=== PATIENT | male | born 1980 | race Caucasian/White ===

== ENCOUNTER 2017-12-05 20:17 | Emergency (ER) | payer SELFPAY ==
--- NOTE | 2017-12-05 22:23 | ER ---
Nurse's Notes [facility] Name: Dustin Dubois Age: 37 yrs Sex: Male : 1980 Arrival Date: 12/05/2017 Time: 20:17 Bed 28 Private MD: Diagnosis: Vomiting without nausea;Diarrhea, unspecified Presentation: 12/05 20:52 Presenting complaint: Patient states: Reports nausea. DX with food poisoning on Sunday. aj Vomiting stopped this AM. Patient is able to tolerate food and liquids. Transition of care: patient was not received from another setting of care. Onset of symptoms was December 03, 2017. Risk Assessment: Do you want to hurt yourself or someone else? Patient reports no desire to harm self or others. Initial Sepsis Screen: Does the patient meet any 2 criteria? No. Patient's initial sepsis screen is negative. Does the patient have a suspected source of infection? No. Patient's initial sepsis screen is negative. Care prior to arrival: None. 20:52 Method Of Arrival: Ambulatory 20:52 Acuity: MIRANDA 4 aj Triage Assessment: 20:53 General: Appears in no apparent distress. comfortable, Behavior is calm, cooperative, aj appropriate for age. Pain: Denies pain. Neuro: Level of Consciousness is awake, alert, obeys commands, Oriented to person, place, time, situation, Appropriate for age. Respiratory: Airway is patent Respiratory effort is even, unlabored, Respiratory pattern is regular, symmetrical. GI: Reports nausea. Derm: Skin is intact, is healthy with good turgor, Skin is pink, warm \T\ dry. normal. Historical: - Allergies: 20:53 No Known Allergies; aj - Home Meds: 20:53 None [Active]; aj - PMHx: 20:53 None; aj - PSHx: 20:53 None; aj - Immunization history:: Adult Immunizations up to date. - Social history:: Smoking status: Patient/guardian denies using tobacco. - Ebola Screening: : Patient negative for fever greater than or equal to 101.5 degrees Fahrenheit, and additional compatible Ebola Virus Disease symptoms Patient denies exposure to infectious person Patient denies travel to an Ebola-affected area in the 21 days before illness onset No symptoms or risks identified at this time. Screenin:57 Abuse screen: Denies threats or abuse. Nutritional screening: No deficits noted. jd3 Tuberculosis screening: No symptoms or risk factors identified. Fall Risk Ambulatory Aid- None/Bed Rest/Nurse Assist (0 pts). Gait- Normal/Bed Rest/Wheelchair (0 pts) Mental Status- Oriented to own ability (0 pts). Total Erwin Fall Scale indicates No Risk (0-24 pts). Assessment: 21:55 General: Appears in no apparent distress. uncomfortable, Behavior is calm, cooperative, jd3 appropriate for age. Pain: Denies pain. Neuro: Level of Consciousness is awake, alert, obeys commands, Oriented to person, place, time, situation. Cardiovascular: Heart tones S1 S2 present Capillary refill < 3 seconds Patient's skin is warm and dry. Respiratory: Airway is patent Respiratory effort is even, unlabored, Respiratory pattern is regular, symmetrical, Breath sounds are clear bilaterally. GI: Bowel sounds present X 4 quads. Abd is soft and non tender X 4 quads. Reports diarrhea, nausea, vomiting. : No signs and/or symptoms were reported regarding the genitourinary system. EENT: No signs and/or symptoms were reported regarding the EENT system. Derm: Skin is intact, Skin is dry, Skin is normal, Skin temperature is warm. Musculoskeletal: Circulation, motion, and sensation intact. Range of motion: intact in all extremities. 22:32 Reassessment: Patient appears in no apparent distress at this time. Patient and/or jd3 family updated on plan of care and expected duration. Pain level reassessed. Patient is alert, oriented x 3, equal unlabored respirations, skin warm/dry/pink. Vital Signs: 20:53 BP 155 / 105; Pulse 86; Resp 17; Temp 97.8; Pulse Ox 99% on R/A; Weight 79.38 kg; aj Height 5 ft. 9 in. (175.26 cm); 22:32 Pulse 85; Resp 16 S; Pulse Ox 98% on R/A; jd3 20:53 Body Mass Index 25.84 (79.38 kg, 175.26 cm) aj ED Course: 20:17 Patient arrived in ED. ds1 20:53 Triage completed. aj 20:53 Arm band placed on left wrist. Patient placed in waiting room, Patient notified of wait aj time. 21:48 Glen Stuart, LIBERTY is Primary Nurse. jd3 21:54 Jeffery Grijalva NP is PHCP. pm1 21:54 Tobias Kathleen MD is Attending Physician. pm1 21:57 Patient has correct armband on for positive identification. Bed in low position. Call jd3 light in reach. Side rails up X 1. 22:31 No provider procedures requiring assistance completed. IV discontinued, intact, jd3 bleeding controlled, No redness/swelling at site. Pressure dressing applied. Administered Medications: No medications were administered Outcome: 22:23 Discharge ordered by . pm1 22:31 Discharged to home ambulatory. jd3 22:31 Condition: stable 22:31 Discharge instructions given to patient, Instructed on discharge instructions, follow up and referral plans. Demonstrated understanding of instructions, follow-up care. 22:33 Patient left the ED. jd3 Signatures: Erika Flores, RN RN Esther Zaragoza ds1 Jeffery Grijalva NP [employer] pm1 Glen Stuart RN RN jcecilia
--- NOTE | 2017-12-05 22:23 | EDPHYS ---
Physician Documentation [facility] Name: Dustin Dubois Age: 37 yrs Sex: Male : 1980 Arrival Date: 12/05/2017 Time: 20:17 Bed 28 Private MD: ED Physician Tobias Kathleen HPI: 12/05 22:22 This 37 yrs old Male presents to ER via Ambulatory with complaints of pm1 Vomiting and diarrhea. 22:22 The patient presents to the emergency department with vomiting, diarrhea. Onset: The pm1 symptoms/episode began/occurred 3 day(s) ago. Possible causes: bad food exposure, Romanian food and crawfish. The symptoms are aggravated by nothing. The symptoms are alleviated by prescription meds, zofran. Associated signs and symptoms: Pertinent negatives: abdominal pain, fever. patient and his girlfriend had Romanian food with crawfish on Sunday. The patient felt a little upset stomach on Sunday night. Onset of vomiting and diarrhea the next morning. Girlfriend felt upset stomach. Patient believes it is the crawfish because he ate a lot of it compared to her. Patient went to urgent care on Sunday and was diagnosed with food poisoning and given a prescription for Zofran. Patient has been able to eat lunch and dinner today without vomiting and diarrhea has resolved. No fevers and patient told me that he has no abdominal pain. Historical: - Allergies: 20:53 No Known Allergies; aj - Home Meds: 20:53 None [Active]; aj - PMHx: 20:53 None; aj - PSHx: 20:53 None; aj - Immunization history:: Adult Immunizations up to date. - Social history:: Smoking status: Patient/guardian denies using tobacco. - Ebola Screening: : Patient negative for fever greater than or equal to 101.5 degrees Fahrenheit, and additional compatible Ebola Virus Disease symptoms Patient denies exposure to infectious person Patient denies travel to an Ebola-affected area in the 21 days before illness onset No symptoms or risks identified at this time. ROS: 22:22 Constitutional: Negative for fever, chills, and weight loss, Eyes: Negative for injury, pm1 pain, redness, and discharge, ENT: Negative for injury, pain, and discharge, Neck: Negative for injury, pain, and swelling, Cardiovascular: Negative for chest pain, palpitations, and edema, Respiratory: Negative for shortness of breath, cough, wheezing, and pleuritic chest pain. 22:22 Back: Negative for injury and pain, : Negative for injury, bleeding, discharge, and swelling, MS/Extremity: Negative for injury and deformity, Skin: Negative for injury, rash, and discoloration, Neuro: Negative for headache, weakness, numbness, tingling, and seizure. 22:22 Abdomen/GI: Positive for vomiting and diarrhea resolved today, Negative for abdominal pain, constipation. Exam: 22:22 Constitutional: This is a well developed, well nourished patient who is awake, alert, pm1 and in no acute distress. Head/Face: Normocephalic, atraumatic. Eyes: Pupils equal round and reactive to light, extra-ocular motions intact. Lids and lashes normal. Conjunctiva and sclera are non-icteric and not injected. Cornea within normal limits. Periorbital areas with no swelling, redness, or edema. ENT: Nares patent. No nasal discharge, no septal abnormalities noted. Tympanic membranes are normal and external auditory canals are clear. Oropharynx with no redness, swelling, or masses, exudates, or evidence of obstruction, uvula midline. Mucous membranes moist. Neck: Trachea midline, no thyromegaly or masses palpated, and no cervical lymphadenopathy. Supple, full range of motion without nuchal rigidity, or vertebral point tenderness. No Meningismus. Chest/axilla: Normal chest wall appearance and motion. Nontender with no deformity. No lesions are appreciated. Cardiovascular: Regular rate and rhythm with a normal S1 and S2. No gallops, murmurs, or rubs. Normal PMI, no JVD. No pulse deficits. Respiratory: Lungs have equal breath sounds bilaterally, clear to auscultation and percussion. No rales, rhonchi or wheezes noted. No increased work of breathing, no retractions or nasal flaring. Abdomen/GI: Soft, non-tender, with normal bowel sounds. No distension or tympany. No guarding or rebound. No evidence of tenderness throughout. Back: No spinal tenderness. No costovertebral tenderness. Full range of motion. Skin: Warm, dry with normal turgor. Normal color with no rashes, no lesions, and no evidence of cellulitis. MS/ Extremity: Pulses equal, no cyanosis. Neurovascular intact. Full, normal range of motion. 22:22 Neuro: Orientation: is normal, Motor: is normal, moves all fours. Vital Signs: 20:53 BP 155 / 105; Pulse 86; Resp 17; Temp 97.8; Pulse Ox 99% on R/A; Weight 79.38 kg; aj Height 5 ft. 9 in. (175.26 cm); 22:32 Pulse 85; Resp 16 S; Pulse Ox 98% on R/A; jd3 20:53 Body Mass Index 25.84 (79.38 kg, 175.26 cm) aj MDM: 21:54 Patient medically screened. pm1 22:22 Data reviewed: vital signs. Data interpreted: Pulse oximetry: on room air is 99 %. pm1 Interpretation: normal. Counseling: I had a detailed discussion with the patient and/or guardian regarding: the historical points, exam findings, and any diagnostic results supporting the discharge/admit diagnosis, the need for outpatient follow up, to return to the emergency department if symptoms worsen or persist or if there are any questions or concerns that arise at home. 22:22 ED course: Patient offered labs to check electrolytes and offered IV fluids. Patient pm1 refused. Administered Medications: No medications were administered Disposition: 12/05/17 22:23 Discharged to Home. Impression: Vomiting without nausea, Diarrhea, unspecified. - Condition is Stable. - Discharge Instructions: Food Choices to Help Relieve Diarrhea, Adult, Diarrhea, Adult, Food Poisoning, Nausea and Vomiting, Adult, [id number]. - Work release form, Medication Reconciliation Form, Thank You Letter, Antibiotic Education form. - Follow up: Emergency Department; When: As needed; Reason: Worsening of condition. Follow up: Private Physician; When: 2 - 3 days; Reason: Recheck today's complaints, Continuance of care, Re-evaluation by your physician. - Problem is new. - Symptoms have improved. Addendum: 12/10/2017 17:39 Co-signature as Attending Physician, Tobias Kathleen MD. g s Signatures: Erika Flores RN RN aj Jeffery Grijalva, [employer]ER [employer] RECYCLER pm1 Tobias Kathleen MD MD gs Davies, Jonathon RN RN jd3 Corrections: (The following items were deleted from the chart) 08/22 22:33 22:23 12/05/2017 22:23 Discharged to Home. Impression: Vomiting without nausea; jd3 Diarrhea, unspecified. Condition is Stable. Forms are Medication Reconciliation Form, Thank You Letter, Antibiotic Education, Prescription Opioid Use. Follow up: Emergency Department; When: As needed; Reason: Worsening of condition. Follow up: Private Physician; When: 2 - 3 days; Reason: Recheck today's complaints, Continuance of care, Re-evaluation by your physician. Problem is new. Symptoms have improved. pm1
== END 2017-12-05 22:33 | disposition home or self-care (01) ==
LOC: ER 20:17
DX: R19.7 Diarrhea, unspecified (principal)
CPT/HCPCS: 99281

== ENCOUNTER 2018-03-28 16:00 | Emergency (ER) | payer SELFPAY ==
[2018-03-28] MEDS ORDERED: NA CHLORIDE 0.9% 1,000 ML ONE (16:58)
[2018-03-28] MEDS ORDERED: ONDANSETRON 4 MG/2 ML VIAL ONE (16:58)
[2018-03-28] MEDS ORDERED: PANTOPRAZOLE 40 MG INJ ONE (16:58)
[2018-03-28 17:07] LABS: Absolute Lymphocytes (CBC) 1.7 K/uL (0.7-4.9); Absolute Monocytes 0.7 K/uL (0.1-1.3); Absolute Neutrophil 7.5 K/uL (1.8-8.0); Basophils % 0.9 % (0-1.3); Eosinophils % 2.3 % (0-4.4); Hematocrit 47.7 % (39.6-49.0); Lymphocytes % 16.3 % (15.3-44.8); MCH 27.8 pg (27.0-35.0); MCV 85.4 fL (80-100); MPV 8.1 fL (7.6-11.3); Monocytes % 7.1 % (3.3-12.3); RBC Red Blood Cell Count 5.58 M/uL (4.33-5.43)
[2018-03-28 17:32] LABS: ALT/SGPT 88 U/L (12-78); AST/SGOT 37 U/L (15-37); Albumin 3.9 g/dL (3.4-5.0); Alkaline Phosphatase 40 U/L (45-117); BUN Blood Urea Nitrogen 11 mg/dL (7-18); Bicarbonate 24 mmol/L (21-32); Bilirubin Direct 0.1 mg/dL (0-0.2); Bilirubin Total 0.5 mg/dL (0.2-1.0); Glucose Level 131 mg/dL (74-106); Lipase 161 U/L (73-393); Potassium 3.9 mmol/L (3.5-5.1); Protein, Total 7.8 g/dL (6.4-8.2); Sodium Level 138 mmol/L (136-145)
[2018-03-28 17:33] LABS: Urine Bacteria <20 /HPF (NONE SEEN); Urine Culture Reflex Order REFLEXED; Urine Mucus 1+ /HPF (NONE SEEN); Urine RBC <5 /HPF (NONE SEEN)
--- NOTE | 2018-03-28 18:57 | RAD REPORT ---
EXAM DESCRIPTION: CT - Abdomen Pelvis W Contrast - 03/28/2018 6:48 pm CLINICAL HISTORY: Abdominal pain, right lower quadrant pain COMPARISON: None. TECHNIQUE: Biphasic, helical CT imaging of the abdomen and pelvis was performed following 100 ml non -ionic IV contrast. Oral contrast was given. All CT scans are performed using dose optimization technique as appropriate and may include automated exposure control or mA/KV adjustment according to patient size. FINDINGS: No suspicious findings in the lung bases. The liver, spleen, and pancreas show no suspicious findings. Gallbladder and biliary tree are also wi thout suspicious finding. Symmetric renal function is seen with no hydronephrosis or suspicious renal mass. No urinary bladder abnormality. Prostate gland and seminal vesicles normal range. No dilated bowel loops or bowel wall thickening. Partially retrocecal appendix is normal. No free air , free fluid or inflammatory stranding. No hernia, mass or bulky lymphadenopathy. No adrenal abnorma lity. No suspicious bony findings. Patient has prominent for age calcifications of the distal aorta and iliac vasculature. IMPRESSION: Contrast enhanced CT abdomen and pelvis showing no acute finding. Patient has advanced for age calcifications of the distal aorta and bilateral common iliac arteries.
[2018-03-28 19:01] LABS: Urine Blood TRACE (NEG); Urine Glucose NEGATIVE (NEG); Urine Protein NEGATIVE (NEG)
--- NOTE | 2018-03-28 19:48 | ER ---
Nurse's Notes [facility] Name: Dustin Dubois Age: 38 yrs Sex: Male : 1980 Arrival Date: 03/28/2018 Time: 16:02 Bed 18 Private MD: Diagnosis: Nausea and vomiting;Diarrhea, unspecified Presentation: 03/28 16:03 Presenting complaint: Patient states: i started feeling sick after lunch yesterday, hj reports vomiting x 10 in 24 hours; my body hurts and im sweating; reports diarrhea; denies abd pain;. Transition of care: patient was not received from another setting of care. Onset of symptoms was March 28, 2018. Risk Assessment: Do you want to hurt yourself or someone else? Patient reports no desire to harm self or others. Initial Sepsis Screen: Does the patient meet any 2 criteria? No. Patient's initial sepsis screen is negative. Does the patient have a suspected source of infection? No. Patient's initial sepsis screen is negative. Care prior to arrival: None. 16:03 Method Of Arrival: Ambulatory 16:03 Acuity: MIRANDA 3 hj Triage Assessment: 16:05 General: Appears in no apparent distress. uncomfortable, Behavior is calm, cooperative, hj appropriate for age. Pain: Denies pain. GI: Reports diarrhea, nausea, vomiting. Historical: - Allergies: 16:05 No Known Allergies; hj - Home Meds: 16:05 None [Active]; hj - PMHx: 16:05 None; hj - PSHx: 16:05 None; hj - Immunization history:: Adult Immunizations up to date. - Social history:: Smoking status: Patient/guardian denies using tobacco, Patient/guardian denies using alcohol. - Ebola Screening: : Patient negative for fever greater than or equal to 101.5 degrees Fahrenheit, and additional compatible Ebola Virus Disease symptoms Patient denies exposure to infectious person Patient denies travel to an Ebola-affected area in the 21 days before illness onset. Screenin:04 Abuse screen: Denies threats or abuse. Denies injuries from another. Nutritional hj screening: No deficits noted. Tuberculosis screening: No symptoms or risk factors identified. Fall Risk None identified. Assessment: 16:05 GI: Abdomen is non-distended. hj 16:30 General: Appears comfortable, Behavior is calm, cooperative. Pain: Complains of pain in aa5 right lower quadrant and whole body Pain does not radiate. Pain currently is 2 out of 10 on a pain scale. Quality of pain is described as aching, Pain began 1 day ago. Is continuous. Neuro: Level of Consciousness is awake, alert, obeys commands, Oriented to person, place, time, situation. Cardiovascular: Heart tones S1 S2 present Rhythm is regular. Respiratory: Airway is patent Respiratory effort is even, unlabored, Respiratory pattern is regular, symmetrical, Breath sounds are clear bilaterally. GI: Abdomen is round non-distended, Bowel sounds present X 4 quads. Abd is soft X 4 quads Abdomen is tender to palpation in right lower quadrant Reports diarrhea, nausea, vomiting. : No signs and/or symptoms were reported regarding the genitourinary system. EENT: No signs and/or symptoms were reported regarding the EENT system. Derm: Skin is pink, warm \T\ dry. Musculoskeletal: Range of motion: intact in all extremities. 17:00 Reassessment: Patient and/or family updated on plan of care and expected duration. Pain aa5 level reassessed. Patient is alert, oriented x 3, equal unlabored respirations, skin warm/dry/pink. Pt sitting up in bed. . 18:27 Reassessment: Patient and/or family updated on plan of care and expected duration. Pain aa5 level reassessed. Patient is alert, oriented x 3, equal unlabored respirations, skin warm/dry/pink. Patient denies pain at this time. Pt awaiting CT scan at this time, notified of wait time. 18:40 Reassessment: Patient is alert, oriented x 3, equal unlabored respirations, skin aa5 warm/dry/pink. Pt taken to CT via wheelchair . 19:06 Reassessment: Patient appears in no apparent distress at this time. No changes from jd3 previously documented assessment. Patient and/or family updated on plan of care and expected duration. Pain level reassessed. Patient is alert, oriented x 3, equal unlabored respirations, skin warm/dry/pink. awaiting CT results. 20:12 Reassessment: Patient appears in no apparent distress at this time. Patient and/or jd3 family updated on plan of care and expected duration. Pain level reassessed. Patient is alert, oriented x 3, equal unlabored respirations, skin warm/dry/pink. Patient states feeling better. Vital Signs: 16:06 BP 134 / 89; Pulse 118; Resp 18; Temp 98.4(TE); Pulse Ox 100% on R/A; Weight 74.84 kg; hj Height 5 ft. 8 in. (172.72 cm); Pain 0/10; 17:00 BP 156 / 100; Pulse 96; Resp 18 S; Pulse Ox 100% on R/A; Pain 0/10; aa5 18:00 BP 140 / 102; Pulse 91; Resp 16 S; Pulse Ox 99% on R/A; Pain 0/10; aa5 18:27 BP 143 / 98; Pulse 91; Resp 16 S; Pulse Ox 98% on R/A; aa5 19:06 BP 151 / 104; Pulse 91; Resp 16 S; Pulse Ox 99% on R/A; jd3 20:13 BP 131 / 98; Pulse 92; Resp 16 S; Pulse Ox 100% on R/A; jd3 16:06 Body Mass Index 25.09 (74.84 kg, 172.72 cm) ED Course: 16:02 Patient arrived in ED. mr 16:04 Triage completed. 16:05 Arm band placed on right wrist. 16:05 Patient has correct armband on for positive identification. Bed in low position. Call light in reach. Side rails up X 1. 16:24 Abner Roger PA is PHCP. cp 16:24 Bin Padron MD is Attending Physician. cp 16:51 Katie Barragan RN is Primary Nurse. aa5 17:02 No provider procedures requiring assistance completed. aa5 17:05 Initial lab(s) drawn, by ct, sent to lab. Inserted saline lock: 20 gauge in right jl7 forearm, using aseptic technique. Blood collected. 17:39 Urine collected: clean catch specimen, clear. 5 17:40 Urine Culture Sent. 5 18:48 CT completed. Patient tolerated procedure well. Patient moved to CT. Patient moved back va from CT. 18:48 CT Abd/Pelvis - W/Contrast In Process Unspecified. EDMS 19:00 Report given to LIBERTY Carroll. aa5 20:12 IV discontinued, intact, bleeding controlled, No redness/swelling at site. Pressure jd3 dressing applied. Administered Medications: 16:55 Drug: NS 0.9% 1000 ml Route: IV; Rate: 1 bolus; Site: right forearm; jl7 18:00 Follow up: IV Status: Completed infusion aa5 16:56 Drug: ProTONIX 40 mg Route: IVP; Site: right forearm; jl7 17:05 Follow up: Response: No adverse reaction aa5 16:59 Drug: Zofran 4 mg Route: IVP; Site: right forearm; jl7 17:05 Follow up: Response: No adverse reaction aa5 Outcome: 19:47 Discharge ordered by . cp 20:12 Discharged to home ambulatory. jd3 20:12 Condition: stable 20:12 Discharge instructions given to patient, Instructed on discharge instructions, follow up and referral plans. Demonstrated understanding of instructions, follow-up care. 20:13 Patient left the ED. jd3 Signatures: Dispatcher [employer] EARNESTLily TalbotKatie, RN RN aa5 Tip Adams RN RN Abner Marsh PA PA cp Jordan, Nathan nj Martinez, Maria [facility] Madonna Camacho RN RN jl7 Glen Stuart RN RN jd3 Corrections: (The following items were deleted from the chart) 16:07 16:06 Pulse 118bpm; Resp 18bpm; Pulse Ox 100% RA; Temp 98.4F Temporal; 74.84 kg; Height hj 5 ft. 8 in.; BMI: 25.0; Pain 0/10; hj
--- NOTE | 2018-03-28 19:48 | EDPHYS ---
Physician Documentation [facility] Name: Dustin Dubois Age: 38 yrs Sex: Male : 1980 Arrival Date: 03/28/2018 Time: 16:02 Bed 18 Private MD: ED Physician Bin Padron HPI: 03/28 16:45 This 38 yrs old Male presents to ER via Ambulatory with complaints of cp Vomiting. 16:45 The patient presents to the emergency department with nausea, that is moderate, cp vomiting, that is intermittent, diarrhea, that is intermittent, abdominal pain, of the right lower quadrant. Onset: The symptoms/episode began/occurred yesterday. Possible causes: unknown. 16:45 Associated signs and symptoms: Pertinent negatives: constipation, fever, GI bleeding. cp 16:45 Severity of symptoms: in the emergency department the symptoms are unchanged despite cp home interventions. Historical: - Allergies: 16:05 No Known Allergies; hj - Home Meds: 16:05 None [Active]; hj - PMHx: 16:05 None; hj - PSHx: 16:05 None; hj - Immunization history:: Adult Immunizations up to date. - Social history:: Smoking status: Patient/guardian denies using tobacco, Patient/guardian denies using alcohol. - Ebola Screening: : Patient negative for fever greater than or equal to 101.5 degrees Fahrenheit, and additional compatible Ebola Virus Disease symptoms Patient denies exposure to infectious person Patient denies travel to an Ebola-affected area in the 21 days before illness onset. ROS: 17:00 Constitutional: Negative for body aches, chills, fever, poor PO intake. cp 17:00 Eyes: Negative for injury, pain, redness, and discharge. cp 17:00 ENT: Negative for drainage from ear(s), ear pain, sore throat, difficulty swallowing, difficulty handling secretions. 17:00 Cardiovascular: Negative for chest pain, edema, palpitations. 17:00 Respiratory: Negative for cough, shortness of breath, wheezing. 17:00 Abdomen/GI: Positive for abdominal pain, nausea, vomiting, and diarrhea, anorexia, Negative for constipation, black/tarry stool, rectal bleeding. 17:00 Back: Negative for radiated pain. 17:00 : Negative for urinary symptoms, flank pain. 17:00 Skin: Negative for cellulitis, rash. 17:00 Neuro: Negative for altered mental status, headache, weakness. 17:00 All other systems are negative. Exam: 17:05 Constitutional: The patient appears in no acute distress, alert, awake, non-toxic, well cp developed, well nourished. 17:05 Head/Face: Normocephalic, atraumatic. cp 17:05 Eyes: Periorbital structures: appear normal, Conjunctiva: normal, no exudate, no injection, Sclera: no appreciated abnormality, Lids and lashes: appear normal, bilaterally. 17:05 ENT: External ear(s): are unremarkable, Ear canal(s): are normal, clear, TM's: dullness, bilaterally, Nose: is normal, Mouth: is normal, Posterior pharynx: is normal, airway is patent, no erythema, no exudate. 17:05 Chest/axilla: Inspection: normal, Palpation: is normal, no crepitus, no tenderness. 17:05 Cardiovascular: Rate: normal, Rhythm: regular, Edema: is not appreciated, JVD: is not appreciated. 17:05 Respiratory: the patient does not display signs of respiratory distress, Respirations: normal, no use of accessory muscles, no retractions, no splinting, no tachypnea, labored breathing, is not present, Breath sounds: are clear throughout, no decreased breath sounds, no stridor, no wheezing. 17:05 Abdomen/GI: Inspection: abdomen appears normal, Bowel sounds: active, all quadrants, Palpation: soft, in all quadrants, mild abdominal tenderness, in the right lower quadrant, rebound tenderness, is not appreciated, involuntary guarding, is not appreciated. 17:05 Back: pain, is absent, ROM is normal. 17:05 Skin: cellulitis, is not appreciated, no rash present. Vital Signs: 16:06 BP 134 / 89; Pulse 118; Resp 18; Temp 98.4(TE); Pulse Ox 100% on R/A; Weight 74.84 kg; hj Height 5 ft. 8 in. (172.72 cm); Pain 0/10; 17:00 BP 156 / 100; Pulse 96; Resp 18 S; Pulse Ox 100% on R/A; Pain 0/10; aa5 18:00 BP 140 / 102; Pulse 91; Resp 16 S; Pulse Ox 99% on R/A; Pain 0/10; aa5 18:27 BP 143 / 98; Pulse 91; Resp 16 S; Pulse Ox 98% on R/A; aa5 19:06 BP 151 / 104; Pulse 91; Resp 16 S; Pulse Ox 99% on R/A; jd3 20:13 BP 131 / 98; Pulse 92; Resp 16 S; Pulse Ox 100% on R/A; jd3 16:06 Body Mass Index 25.09 (74.84 kg, 172.72 cm) hj MDM: 16:24 Patient medically screened. cp 17:00 Differential diagnosis: gastritis, pancreatitis, appendicitis, viral gastroenteritis, cp gastroenteritis, colitis. 19:47 Data reviewed: vital signs, nurses notes, lab test result(s), radiologic studies, CT cp scan. 19:47 Counseling: I had a detailed discussion with the patient and/or guardian regarding: the cp historical points, exam findings, and any diagnostic results supporting the discharge/admit diagnosis, lab results, radiology results, to return to the emergency department if symptoms worsen or persist or if there are any questions or concerns that arise at home. Response to treatment: the patient's symptoms have markedly improved after treatment. ED course: VSS. Nausea markedly improved, vomiting resolved and patient tolerating po fluids. CT abdomen negative for acute findings. Will discharge to home for continued monitoring. 03/28 16:39 Order name: Basic Metabolic Panel; Complete Time: 19:03 cp 12/13 19:48 Interpretation: Normal except: GLUC 131. cp 12/13 16:39 Order name: CBC with Diff; Complete Time: 19:03 /13 19:04 Interpretation: Normal except: RBC 5.58; PLT 439. cp 12/13 16:39 Order name: Creatinine for Radiology; Complete Time: 19:03 cp 12/13 16:39 Order name: Hepatic Function; Complete Time: 19:03 cp 12/13 16:39 Order name: Lipase; Complete Time: 19:03 cp 12/13 16:39 Order name: Urine Microscopic Only; Complete Time: 19:03 cp 12/ 16:39 Order name: IV Saline Lock; Complete Time: 17:03 cp 12/13 16:39 Order name: Labs collected and sent; Complete Time: 17:03 cp 03/28 16:39 Order name: CT Abd/Pelvis - W/Contrast; Complete Time: 19:03 cp 03/28 17:35 Order name: Urine Culture [facility] 03/28 17:47 Order name: Urine Dipstick--Ancillary (enter results); Complete Time: 19:03 iw 03/28 16:39 Order name: Urine Dipstick-Ancillary (obtain specimen); Complete Time: 17:40 cp 03/28 19:05 Order name: PO challenge; Complete Time: 19:21 cp Administered Medications: 16:55 Drug: NS 0.9% 1000 ml Route: IV; Rate: 1 bolus; Site: right forearm; jl7 18:00 Follow up: IV Status: Completed infusion aa5 16:56 Drug: ProTONIX 40 mg Route: IVP; Site: right forearm; jl7 17:05 Follow up: Response: No adverse reaction aa5 16:59 Drug: Zofran 4 mg Route: IVP; Site: right forearm; jl7 17:05 Follow up: Response: No adverse reaction aa5 Disposition: 03/28/18 19:47 Discharged to Home. Impression: Nausea and vomiting, Diarrhea, unspecified. - Condition is Stable. - Discharge Instructions: Food Choices to Help Relieve Diarrhea, Adult, Diarrhea, Adult, Nausea and Vomiting, Adult. - Prescriptions for Bentyl 20 mg Oral Tablet - take 1 tablet by ORAL route every 6 hours As needed; 20 tablet. Zofran 4 mg Oral Tablet - take 1 tablet by ORAL route every 12 hours As needed; 20 tablet. - Medication Reconciliation Form, Thank You Letter, Antibiotic Education, Prescription Opioid Use, Work release form form. - Follow up: Private Physician; When: 2 - 3 days; Reason: Recheck today's complaints. - Problem is new. - Symptoms have improved. Signatures: Dispatcher [employer] [facility] Tip Adams RN RN Abner Marsh PA PA cp Leal, Jahala, RN RN jl7 Glen Stuart RN RN [email or web address] Katie Barragan RN aa5 Corrections: (The following items were deleted from the chart) 20:13 19:47 03/28/2018 19:47 Discharged to Home. Impression: Nausea and vomiting; Diarrhea, jd3 unspecified. Condition is Stable. Forms are Medication Reconciliation Form, Thank You Letter, Antibiotic Education, Prescription Opioid Use. Follow up: Private Physician; When: 2 - 3 days; Reason: Recheck today's complaints. Problem is new. Symptoms have improved. cp
== END 2018-03-28 20:13 | disposition home or self-care (01) ==
LOC: ER 16:00
DX: R19.7 Diarrhea, unspecified (principal)
CPT/HCPCS: 36415; 74177; 80048; 80076; 81003; 81015; 83690; 85025; 87086; 87088; 96361; 96374; 96375; 99284; C9113; J2405; J7030; Q9967

== ENCOUNTER 2018-04-01 15:49 | Emergency (ER) | payer SELFPAY ==
[2018-04-01] MEDS ORDERED: NA CHLORIDE 0.9% 1,000 ML ONE (16:18)
[2018-04-01] MEDS ORDERED: ONDANSETRON 4 MG/2 ML VIAL ONE (16:18)
[2018-04-01 16:28] LABS: Absolute Lymphocytes (CBC) 1.4 K/uL (0.7-4.9); Absolute Monocytes 0.5 K/uL (0.1-1.3); Absolute Neutrophil 4.8 K/uL (1.8-8.0); Basophils % 1.4 % (0-1.3); Eosinophils % 3.3 % (0-4.4); Hematocrit 45.6 % (39.6-49.0); Lymphocytes % 20.1 % (15.3-44.8); MPV 8.3 fL (7.6-11.3); Monocytes % 7.4 % (3.3-12.3); RBC Red Blood Cell Count 5.42 M/uL (4.33-5.43)
[2018-04-01 16:50] LABS: ALT/SGPT 106 U/L (12-78); AST/SGOT 32 U/L (15-37); Albumin 3.7 g/dL (3.4-5.0); Alkaline Phosphatase 42 U/L (45-117); BUN Blood Urea Nitrogen 8 mg/dL (7-18); Bicarbonate 26 mmol/L (21-32); Bilirubin Direct 0.2 mg/dL (0-0.2); Bilirubin Total 0.3 mg/dL (0.2-1.0); Glucose Level 152 mg/dL (74-106); Lipase 175 U/L (73-393); Potassium 3.6 mmol/L (3.5-5.1); Protein, Total 7.3 g/dL (6.4-8.2); Sodium Level 140 mmol/L (136-145)
--- NOTE | 2018-04-01 17:58 | ER ---
Nurse's Notes [facility] Name: Dustin Dubois Age: 38 yrs Sex: Male : 1980 Arrival Date: 04/01/2018 Time: 15:51 Bed 19 Private MD: None, None Diagnosis: Vomiting;Diarrhea, unspecified Presentation: 04/01 16:00 Presenting complaint: Patient states: i was on the 13th for abd pain, N/V, diarrhea, hj they said it was a stomach bug, was Rx with nausea meds; now, symptoms came back and i vomited x 3 today and went to the bathroom for my diarrhea x 3; denies diarrhea;. Transition of care: patient was not received from another setting of care. Onset of symptoms was April 01, 2018. Risk Assessment: Do you want to hurt yourself or someone else? Patient reports no desire to harm self or others. Initial Sepsis Screen: Does the patient meet any 2 criteria? No. Patient's initial sepsis screen is negative. Does the patient have a suspected source of infection? No. Patient's initial sepsis screen is negative. Care prior to arrival: None. 16:00 Method Of Arrival: Ambulatory 16:00 Acuity: MIRANDA 3 hj Triage Assessment: 16:02 General: Appears in no apparent distress. uncomfortable, Behavior is calm, cooperative, hj appropriate for age. Pain: Complains of pain in abdomen Pain currently is 6 out of 10 on a pain scale. EENT: No signs and/or symptoms were reported regarding the EENT system. Neuro: Level of Consciousness is awake, alert, obeys commands, Oriented to person, place, time, situation, Appropriate for age. Cardiovascular: Capillary refill < 3 seconds Patient's skin is warm and dry. Respiratory: Airway is patent Respiratory effort is even, unlabored, Respiratory pattern is regular, symmetrical. GI: Reports lower abdominal pain, upper abdominal pain, diarrhea, nausea, vomiting. : No signs and/or symptoms were reported regarding the genitourinary system. Derm: No signs and/or symptoms reported regarding the dermatologic system. Musculoskeletal: No signs and/or symptoms reported regarding the musculoskeletal system. Historical: - Allergies: 16:03 No Known Allergies; hj - Home Meds: 16:03 None [Active]; hj - PMHx: 16:03 None; hj - PSHx: 16:03 None; hj - Immunization history:: Adult Immunizations unknown. - Social history:: Smoking status: Patient/guardian denies using tobacco, Patient/guardian denies using alcohol. - Ebola Screening: : Patient negative for fever greater than or equal to 101.5 degrees Fahrenheit, and additional compatible Ebola Virus Disease symptoms Patient denies exposure to infectious person Patient denies travel to an Ebola-affected area in the 21 days before illness onset. Screenin:02 Abuse screen: Denies threats or abuse. Denies injuries from another. Nutritional hj screening: No deficits noted. Tuberculosis screening: No symptoms or risk factors identified. Fall Risk None identified. Assessment: 16:04 GI: Bowel sounds present X 4 quads. Abd is soft and non tender. hj 16:04 Reassessment: see triage for assessment;. hj 18:23 Reassessment: PT D/C HOME AMBULATORY, DX WITH VOMITING AND DIARRHEA. bp Vital Signs: 16:04 BP 165 / 104; Pulse 97; Resp 18; Temp 98.8(O); Pulse Ox 100% on R/A; Weight 74.84 kg; hj Height 5 ft. 9 in. (175.26 cm); Pain 5/10; 17:27 BP 136 / 87; Pulse 87; Resp 17; Pulse Ox 100% on R/A; mh5 18:29 BP 143 / 79; Pulse 75; Resp 16; Pulse Ox 100% ; bp 16:04 Body Mass Index 24.37 (74.84 kg, 175.26 cm) ED Course: 15:51 Patient arrived in ED. mr 15:52 None, None is Private Physician. mr 15:56 Tip Adams, LIBERTY is Primary Nurse. hj 15:56 Tobias Kathleen MD is Attending Physician. gs 16:02 Triage completed. hj 16:04 Arm band placed on right wrist. hj 16:04 Patient has correct armband on for positive identification. Placed in gown. Bed in low hj position. Call light in reach. Side rails up X 1. 16:15 Initial lab(s) drawn, by me, sent to lab. Inserted saline lock: 20 gauge in left hj forearm, using aseptic technique. Blood collected. 17:18 Primary Nurse role handed off by Tip Adams, LIBERTY bp 17:18 Josué Kruse, RN is Primary Nurse. bp 17:27 Urine collected: clean catch specimen, clear. 5 18:06 Chai Nuñez MD is Referral Physician. 18:29 No provider procedures requiring assistance completed. IV discontinued, intact, bp bleeding controlled, No redness/swelling at site. Pressure dressing applied. Administered Medications: 16:15 Drug: Zofran 4 mg Route: IVP; Site: left forearm; hj 16:19 Follow up: Response: No adverse reaction; Nausea is decreased 16:15 Drug: NS 0.9% 1000 ml Route: IV; Rate: 1 bolus; Site: left forearm; hj 18:30 Follow up: IV Status: Completed infusion; IV Intake: 1000ml bp Intake: 18:30 IV: 1000ml; Total: 1000ml. bp Outcome: 17:57 Discharge ordered by MD. 18:29 Discharged to home ambulatory. bp 18:29 Condition: stable 18:29 Discharge instructions given to patient, Instructed on discharge instructions, follow up and referral plans. medication usage, Demonstrated understanding of instructions, follow-up care, medications, Prescriptions given X 1. 18:30 Patient left the ED. bp Signatures: Lily Navarro mr AdamsTip RN RN [facility] Tobias Kathleen MD MD gs Peltier, Brian, LIBERTY RN bp Corrections: (The following items were deleted from the chart) 16:05 16:04 BP 165 / 104; Pulse 75bpm; Resp 18bpm; Pulse Ox 100% RA; Temp 98.8F Oral; 74.84 hj kg; Height 5 ft. 9 in.; BMI: 24.3; Pain 5/10; hj
--- NOTE | 2018-04-01 17:58 | EDPHYS ---
Physician Documentation [facility] Name: Dustin Dubois Age: 38 yrs Sex: Male : 1980 Arrival Date: 04/01/2018 Time: 15:51 Bed 19 Private MD: None, None ED Physician Tobias Kathleen HPI: 04/01 16:17 This 38 yrs old Male presents to ER via Ambulatory with complaints of gs Abdominal Pain, Vomiting/Diarrhea. 16:17 The patient presents to the emergency department with vomiting, diarrhea. Onset: The gs symptoms/episode began/occurred 5 day(s) ago. Possible causes: unknown. The symptoms are aggravated by nothing. The symptoms are alleviated by nothing. Associated signs and symptoms: Pertinent negatives: abdominal pain, fever, GI bleeding, hematuria. Severity of symptoms: At their worst the symptoms were severe in the emergency department the symptoms have improved markedly. The patient has experienced similar episodes in the past, several times. The patient has been recently seen at the [facility] Emergency Department, last week. Historical: - Allergies: 16:03 No Known Allergies; hj - Home Meds: 16:03 None [Active]; hj - PMHx: 16:03 None; hj - PSHx: 16:03 None; hj - Immunization history:: Adult Immunizations unknown. - Social history:: Smoking status: Patient/guardian denies using tobacco, Patient/guardian denies using alcohol. - Ebola Screening: : Patient negative for fever greater than or equal to 101.5 degrees Fahrenheit, and additional compatible Ebola Virus Disease symptoms Patient denies exposure to infectious person Patient denies travel to an Ebola-affected area in the 21 days before illness onset. ROS: 16:17 All other systems are negative. gs Exam: 16:17 Head/Face: Normocephalic, atraumatic. Eyes: Pupils equal round and reactive to light, gs extra-ocular motions intact. Lids and lashes normal. Conjunctiva and sclera are non-icteric and not injected. Cornea within normal limits. Periorbital areas with no swelling, redness, or edema. ENT: Nares patent. No nasal discharge, no septal abnormalities noted. Tympanic membranes are normal and external auditory canals are clear. Oropharynx with no redness, swelling, or masses, exudates, or evidence of obstruction, uvula midline. Mucous membranes moist. Neck: Trachea midline, no thyromegaly or masses palpated, and no cervical lymphadenopathy. Supple, full range of motion without nuchal rigidity, or vertebral point tenderness. No Meningismus. Chest/axilla: Normal chest wall appearance and motion. Nontender with no deformity. No lesions are appreciated. Cardiovascular: Regular rate and rhythm with a normal S1 and S2. No gallops, murmurs, or rubs. Normal PMI, no JVD. No pulse deficits. Respiratory: Lungs have equal breath sounds bilaterally, clear to auscultation and percussion. No rales, rhonchi or wheezes noted. No increased work of breathing, no retractions or nasal flaring. Back: No spinal tenderness. No costovertebral tenderness. Full range of motion. Skin: Warm, dry with normal turgor. Normal color with no rashes, no lesions, and no evidence of cellulitis. MS/ Extremity: Pulses equal, no cyanosis. Neurovascular intact. Full, normal range of motion. Neuro: Awake and alert, GCS 15, oriented to person, place, time, and situation. Cranial nerves II-XII grossly intact. Motor strength 5/5 in all extremities. Sensory grossly intact. Cerebellar exam normal. Normal gait. 16:17 Constitutional: The patient appears in no acute distress, alert, awake. 16:17 Abdomen/GI: Palpation: nontender, in all quadrants, mass, is not appreciated, rebound tenderness, is not appreciated. Vital Signs: 16:04 BP 165 / 104; Pulse 97; Resp 18; Temp 98.8(O); Pulse Ox 100% on R/A; Weight 74.84 kg; hj Height 5 ft. 9 in. (175.26 cm); Pain 5/10; 17:27 BP 136 / 87; Pulse 87; Resp 17; Pulse Ox 100% on R/A; mh5 18:29 BP 143 / 79; Pulse 75; Resp 16; Pulse Ox 100% ; bp 16:04 Body Mass Index 24.37 (74.84 kg, 175.26 cm) MDM: 16:05 Patient medically screened. 16:17 Differential diagnosis: Nonspecific abd pain, viral gastroenteritis, gastroenteritis. Data reviewed: vital signs, nurses notes. 04/01 16:07 Order name: Basic Metabolic Panel; Complete Time: 17:56 gs 04/01 16:07 Order name: CBC with Diff; Complete Time: 17:56 04/01 16:07 Order name: Hepatic Function; Complete Time: 17:56 04/01 16:07 Order name: Lipase; Complete Time: 17:56 04/01 16:07 Order name: IV Saline Lock; Complete Time: 16:19 04/01 16:07 Order name: Labs collected and sent; Complete Time: 16:19 04/01 17:43 Order name: Urine Dipstick--Ancillary (enter results) bd Administered Medications: 16:15 Drug: Zofran 4 mg Route: IVP; Site: left forearm; hj 16:19 Follow up: Response: No adverse reaction; Nausea is decreased 16:15 Drug: NS 0.9% 1000 ml Route: IV; Rate: 1 bolus; Site: left forearm; hj 18:30 Follow up: IV Status: Completed infusion; IV Intake: 1000ml bp Disposition: 04/01/18 17:57 Discharged to Home. Impression: Vomiting, Diarrhea, unspecified. - Condition is Stable. - Discharge Instructions: Diarrhea, Adult, Nausea and Vomiting, Adult. - Prescriptions for Zofran 4 mg Oral Tablet - take 1 tablet by ORAL route every 12 hours As needed; 10 tablet. - Medication Reconciliation Form, Thank You Letter, Antibiotic Education, Prescription Opioid Use, Work release form form. - Follow up: Private Physician; When: 2 - 3 days; Reason: Re-evaluation by your physician. Follow up: Chai Nuñez MD; When: 2 - 3 days; Reason: Re-evaluation by your physician. Signatures: Dispatcher [employer] [facility] Tip Adams RN RN Tobias Kathleen MD MD Jousé Kruse RN RN bp Corrections: (The following items were deleted from the chart) 18:07 17:57 04/01/2018 17:57 Discharged to Home. Impression: Vomiting; Diarrhea, unspecified. gs Condition is Stable. Forms are Medication Reconciliation Form, Thank You Letter, Antibiotic Education, Prescription Opioid Use. Follow up: Private Physician; When: 2 - 3 days; Reason: Re-evaluation by your physician. 18:30 18:07 04/01/2018 17:57 Discharged to Home. Impression: Vomiting; Diarrhea, unspecified. bp Condition is Stable. Discharge Instructions: Diarrhea, Adult, Nausea and Vomiting, Adult. Prescriptions for Zofran 4 mg Oral Tablet - take 1 tablet by ORAL route every 12 hours As needed; 10 tablet. and Forms are Medication Reconciliation Form, Thank You Letter, Antibiotic Education, Prescription Opioid Use. Follow up: Private Physician; When: 2 - 3 days; Reason: Re-evaluation by your physician. Follow up: Chai Nuñez; When: 2 - 3 days; Reason: Re-evaluation by your physician. gs
[2018-04-01 18:46] LABS: Urine Blood NEGATIVE (NEG); Urine Glucose NEGATIVE (NEG); Urine Protein NEGATIVE (NEG); Urine Specific Gravity 1.025 (1.005-1.030)
== END 2018-04-01 18:30 | disposition home or self-care (01) ==
LOC: ER 15:49
DX: R19.7 Diarrhea, unspecified (principal)
CPT/HCPCS: 36415; 80048; 80076; 81003; 83690; 85025; 96361; 96374; 99284; J2405; J7030